=== PATIENT | female | born 1950 | race African-American/Black ===

== ENCOUNTER 2017-12-10 15:57 | Emergency (ER) | payer MEDICARE, MEDICAID ==
[~2017-12-10] VITALS: Ht 162.6 cm; Wt 73.0 kg
[~2017-12-10 15:57] MED LIST: CLON0.1T PO
[2017-12-10] MEDS ORDERED: ACETAMINOPHEN 325MG TABLET PO ONE (16:45)
[2017-12-10] MEDS ORDERED: HYDROCODONE/ACETAMINOPHEN 5/325MG TABLET PO ONE (16:45)
[2017-12-10] MEDS: CEFTRIAXONE SODIUM 1 G/VIAL IM ONE (16:52)
[2017-12-10] MEDS: HYDROCODONE/ACETAMINOPHEN 5/325MG TABLET PO ONE (16:52)
[2017-12-10 18:10] VITALS: BP 107/55
== END 2017-12-10 18:12 | disposition home or self-care (01) ==
LOC: ER 16:29
DX: S80.812A Abrasion, left lower leg, initial encounter (principal); L03.116 Cellulitis of left lower limb; I10 Essential (primary) hypertension; F32.9 Major depressive disorder, single episode, unspecified; W01.0XXA Fall on same level from slipping, tripping and stumbling without subsequent striking against object, initial encounter; Y93.89 Activity, other specified; Y99.8 Other external cause status; Y92.89 Other specified places as the place of occurrence of the external cause; Z98.890 Other specified postprocedural states
CPT/HCPCS: 73590; 96372; 99284; J0696

== ENCOUNTER 2017-12-15 12:25 | Emergency (ER) | payer MEDICARE, MEDICAID ==
[~2017-12-15] VITALS: Ht 162.6 cm; Wt 73.0 kg
[2017-12-15] MEDS ORDERED: SULF1TAB48 PO (12:42)
[2017-12-15] MEDS ORDERED: CEPH-568 PO (12:42)
[2017-12-15] MEDS ORDERED: IBUPROFEN 800MG TABLET PO ONE (13:45)
[2017-12-15] MEDS ORDERED: LIDOCAINE HCL 1% 20ML VIAL (Pyxis) INJ INFIL ONE ×2 (14:30→15:30)
[2017-12-15] MEDS ORDERED: LIDOCAINE HCL 1% 10 MG/ML 10ML VIAL INJ NR (14:34)
[2017-12-15] MEDS ORDERED: ACETAMINOPHEN WITH CODEINE 300/30MG TABLET PO ONE (15:45)
[2017-12-15 16:54] VITALS: BP 124/72
== END 2017-12-15 16:59 | disposition home or self-care (01) ==
LOC: ER 13:27
DX: T79.8XXA Other early complications of trauma, initial encounter (principal); S81.802D Unspecified open wound, left lower leg, subsequent encounter; I10 Essential (primary) hypertension; F32.9 Major depressive disorder, single episode, unspecified; Z98.1 Arthrodesis status; Z98.890 Other specified postprocedural states; W19.XXXD Unspecified fall, subsequent encounter
CPT/HCPCS: 10060; 99283; J3490

== ENCOUNTER 2017-12-16 14:49 | Emergency (ER) | payer MEDICARE, MEDICAID ==
[~2017-12-16] VITALS: Ht 162.6 cm; Wt 73.0 kg
[~2017-12-16 14:49] MED LIST changes: +CEPH-568 PO; +SULF1TAB48 PO
[2017-12-16 15:00] VITALS: BP 134/90
== END 2017-12-16 16:49 | disposition home or self-care (01) ==
LOC: ER 15:56
DX: Z48.00 Encounter for change or removal of nonsurgical wound dressing (principal)
CPT/HCPCS: 99282